=== PATIENT | male | born 1980 | race Caucasian/White ===

== ENCOUNTER 2021-05-30 10:07 | Inpatient (IN) | payer OTHER ==
[2021-05-30] MEDS ORDERED: MENTHOL/PHENOL 1 EACH UD MM PRN (10:58)
[2021-05-30] MEDS ORDERED: METHOCARBAMOL 500 MG TABLET PO PRN (10:58)
[2021-05-30] MEDS ORDERED: ONDANSETRON *ODT* 4 MG TABLET SL PRN (10:58)
[2021-05-30] MEDS ORDERED: BISMUTH SUBSALICYLATE 262 MG/15 ML BTL PO PRN (10:58)
[2021-05-30] MEDS ORDERED: MAG HYDROX/AL HYDROX/SIMETH 30 ML UNIT-DOSE CUP PO PRN (10:58)
[2021-05-30] MEDS ORDERED: MAGNESIUM HYDROX 2400MG/30ML ORAL SUSPENSION 30 ML CUP PO PRN (10:58)
[2021-05-30] MEDS ORDERED: diazePAM 5 MG TABLET PO PRN (10:58)
[2021-05-30] MEDS ORDERED: NICOTINE 10 MG CARTRIDGE (INHALER) IH PRN (10:58)
[2021-05-30] MEDS ORDERED: MAGNESIUM CITRATE 300 ML BOTTLE PO PRN (10:58)
[2021-05-30] MEDS ORDERED: ACETAMINOPHEN 325 MG TABLET (FP) PO PRN ×2 (10:58)
[2021-05-30] MEDS ORDERED: methaDONE HCL 10 MG TABLET (FOR DETOX USE ONLY) PO ONE (10:58)
[2021-05-30] MEDS ORDERED: IBUPROFEN 400 MG TABLET (FP) PO PRN (10:58)
[2021-05-30] MEDS ORDERED: cloNIDine HCL 0.1 MG TABLET PO PRN (10:58)
[2021-05-30 10:59] VITALS: BMI 22.4
[2021-05-30] MEDS ORDERED: INSULIN (NOVOLOG) ASPART 100 UNITS/ML 10ML VIAL SQ SCH (11:47)
[2021-05-30] MEDS ORDERED: INSULIN (NOVOLOG) ASPART 100 UNITS/ML 10ML VIAL SQ ONE ×3 (12:05→23:02)
[2021-05-30] MEDS: PRENATAL VITAMINS W/ FOLIC ACID TABLET (FP) PO SCH (12:35)
[2021-05-30] MEDS: NICOTINE 14 MG/24 HOURS TOPICAL PATCH TD SCH (12:35)
[2021-05-30] MEDS: diazePAM 5 MG TABLET PO SCH ×3 (12:37→22:45)
[2021-05-30] MEDS: hydrOXYzine PAMOATE 25 MG CAPSULE (FP) PO SCH ×3 (13:23→22:45)
[2021-05-30] MEDS ORDERED: PATIENT'S OWN MEDICATION (NON-FORMULARY) (Insulin Lispro [Admelog Solostar] 100 UNIT/ML In SQ SCH (14:00)
[2021-05-30 14:34] LABS: HEMATOCRIT 40.4 % (35.4-49); HEMOGLOBIN 13.7 GM/dL (11.7-16.9); MCHC 33.9 g/dl (32.0-35.9); MEAN CELL VOLUME 82.5 fl (80-96); MEAN PLT VOLUME 8.6 fl (7.5-11.1); PLATELET COUNT 161 10^3/uL (134-434); RDW 15.1 % (11.9-15.9); WHITE BLOOD COUNT 7.1 K/mm3 (4.0-10.0)
[2021-05-30] MEDS ORDERED: INSULIN SLIDING SCALE (NOVOLOG) 1 VIAL SQ SCH (16:30)
[2021-05-30 16:34] LABS: ALBUMIN 3.4 g/dl (3.4-5.0); ALK PHOS 115 U/L (45-117); ANION GAP 9 MMOL/L (8-16); BILIRUBIN,TOTAL 0.3 mg/dL (0.2-1); BLOOD UREA NITROGEN 16.1 mg/dL (7-18); CALCIUM 9.2 mg/dL (8.5-10.1); CHLORIDE 92 mmol/L (98-107); CO2 26 mmol/L (21-32); GLUCOSE,RANDOM 585 mg/dL (74-106); SGOT/AST 29 U/L (15-37); SGPT/ALT 51 U/L (13-61); SODIUM 127 mmol/L (136-145); TOT PROT 7.8 g/dl (6.4-8.2)
[2021-05-30] MEDS ORDERED: INSULIN SLIDING SCALE (NOVOLOG) 1 VIAL SQ ONE ×2 (17:00→23:32)
[2021-05-30] MEDS ORDERED: MELATONIN 5 MG TABLETS PO SCH (22:00)
[2021-05-30] MEDS ORDERED: THIAMINE HCL 100 MG TABLET (FP) PO SCH (22:00)
[2021-05-30] MEDS ORDERED: INSULIN (LEVEMIR) 100 UNITS/ML UNITS SQ SCH (22:00)
[2021-05-30] MEDS: SULFAMETHOXAZOLE/TRIMETHOPRIM 800MG/160MG D.S. TABLET PO SCH (22:45)
[2021-05-31] MEDS: hydrOXYzine PAMOATE 25 MG CAPSULE (FP) PO SCH ×2 (05:50→10:39)
[2021-05-31] MEDS: diazePAM 5 MG TABLET PO SCH ×2 (05:51→10:39)
[2021-05-31] MEDS ORDERED: INSULIN SLIDING SCALE (NOVOLOG) 1 VIAL SQ SCH (07:00)
[2021-05-31] MEDS ORDERED: methaDONE HCL 10 MG TABLET (FOR DETOX USE ONLY) ONE (09:09)
[2021-05-31 09:27] VITALS: BP 103/60; PULSE 86; TEMP 97.5
[2021-05-31] MEDS: NICOTINE 14 MG/24 HOURS TOPICAL PATCH TD SCH (10:37)
[2021-05-31] MEDS: SULFAMETHOXAZOLE/TRIMETHOPRIM 800MG/160MG D.S. TABLET PO SCH (10:37)
[2021-05-31] MEDS: PRENATAL VITAMINS W/ FOLIC ACID TABLET (FP) PO SCH (10:38)
[2021-06-01] MEDS ORDERED: diazePAM 5 MG TABLET PO SCH (06:00)
[2021-06-01] MEDS ORDERED: methaDONE HCL 10 MG TABLET (FOR DETOX USE ONLY) PO ONE (10:00)
[2021-06-02] MEDS ORDERED: diazePAM 5 MG TABLET PO SCH (06:00)
[2021-06-03] MEDS ORDERED: diazePAM 5 MG TABLET PO ONE (06:00)
[2021-06-03] MEDS ORDERED: methaDONE HCL 10 MG TABLET (FOR DETOX USE ONLY) PO ONE (10:00)
== END 2021-05-31 11:21 | disposition left against medical advice (07) | DRG 770 ==
LOC: YASAS 10:07 → Y3N 11:15
PROVIDERS: ADMIT Allergy & Immunology; ATTEND Allergy & Immunology
PROC: HZ2ZZZZ Detoxification Services for Substance Abuse Treatment (ICD-10-PCS; principal; 2021-05-30)
DX: F11.23 Opioid dependence with withdrawal (principal); F10.230 Alcohol dependence with withdrawal, uncomplicated; F14.20 Cocaine dependence, uncomplicated; F17.210 Nicotine dependence, cigarettes, uncomplicated; Z21 Asymptomatic human immunodeficiency virus [HIV] infection status; B18.2 Chronic viral hepatitis C; E11.9 Type 2 diabetes mellitus without complications; Z79.4 Long term (current) use of insulin; R63.4 Abnormal weight loss; Z68.22 Body mass index [BMI] 22.0-22.9, adult; Z91.14 Patient's other noncompliance with medication regimen
CPT/HCPCS: 36415; 80053; 82962; 85027; 86780; C9803; U0003; U0005

== ENCOUNTER 2024-01-21 18:30 | Inpatient (IN) | payer OTHER ==
[2024-01-21 20:25] VITALS: BMI 24.5
[2024-01-21] MEDS ORDERED: guaiFENesin 600 MG TABLET.ER (FP) PO PRN (21:09)
[2024-01-21] MEDS ORDERED: POLYETHYLENE GLYCOL (HEALTHYLAX) 3350 17 GM PACKET PO PRN (21:09)
[2024-01-21] MEDS ORDERED: MAGNESIUM HYDROX 2400MG/30ML ORAL SUSPENSION 30 ML CUP PO PRN (21:09)
[2024-01-21] MEDS ORDERED: BISMUTH SUBSALICYLATE 524 MG/30 ML PO PRN (21:09)
[2024-01-21] MEDS ORDERED: MAG HYDROX/AL HYDROX/SIMETH 30 ML UNIT-DOSE CUP PO PRN (21:09)
[2024-01-21] MEDS ORDERED: NALOXONE (NARCAN) HCL 4 MG/0.1 ML SPRAY NS PRN (21:09)
[2024-01-21] MEDS ORDERED: DICYCLOMINE HCL 10 MG CAPSULE PO PRN (21:09)
[2024-01-21] MEDS ORDERED: NICOTINE POLACRILEX 2 MG GUM BUC PRN (21:09)
[2024-01-21] MEDS ORDERED: hydrOXYzine PAMOATE 25 MG CAPSULE (FP) PO PRN (21:09)
[2024-01-21] MEDS ORDERED: ONDANSETRON *ODT* 4 MG TABLET SL PRN (21:09)
[2024-01-21] MEDS ORDERED: BENZOCAINE/MENTHOL (CHLORASEPTIC ) LOZENGE MM PRN (21:09)
[2024-01-21] MEDS ORDERED: NALOXONE HCL 0.4 MG/ML VIAL IM PRN (21:09)
[2024-01-21] MEDS ORDERED: IBUPROFEN 600 MG TABLET (FP) PO PRN (21:09)
[2024-01-21] MEDS ORDERED: BENZONATATE 200 MG CAPSULE PO PRN (21:09)
[2024-01-21] MEDS ORDERED: IBUPROFEN 400 MG TABLET (FP) PO PRN (21:09)
[2024-01-21] MEDS ORDERED: LOPERAMIDE HCL 2 MG CAPSULE PO PRN (21:09)
[2024-01-21] MEDS ORDERED: ACETAMINOPHEN 325 MG TABLET (FP) PO PRN (21:09)
[2024-01-21] MEDS: THIAMINE 100 MG TABLET PO SCH (22:53)
[2024-01-21] MEDS: MELATONIN 5 MG TABLETS PO SCH (22:54)
[2024-01-21] MEDS: INSULIN ASPART SLIDING SCALE (NOVOLOG) 1 VIAL SQ ONE (23:16)
[2024-01-22] MEDS ORDERED: diazePAM 5 MG TABLET PO PRN (08:41)
[2024-01-22] MEDS ORDERED: methaDONE HCL 40 MG DISPERSABLE TABLET PO SCH (08:45)
[2024-01-22] MEDS ORDERED: methaDONE HCL 10 MG TABLET PO SCH (08:45)
[2024-01-22] MEDS: INSULIN (NOVOLOG) ASPART 100 UNITS/ML 10ML VIAL SQ ONE ×2 (09:51→21:40)
[2024-01-22] MEDS ORDERED: INSULIN ASPART SLIDING SCALE (NOVOLOG) 1 VIAL SQ ONE (09:52)
[2024-01-22] MEDS: NICOTINE 14 MG/24 HOURS TOPICAL PATCH TD SCH (09:53)
[2024-01-22] MEDS: PRENATAL VITAMINS W/ FOLIC ACID TABLET (FP) PO SCH (09:53)
[2024-01-22] MEDS: diazePAM 5 MG TABLET PO SCH (10:31)
[2024-01-22] MEDS: INSULIN (NOVOLOG) ASPART 100 UNITS/ML 10ML VIAL SQ SCH (11:39)
[2024-01-22 11:48] LABS: HEMATOCRIT 41.3 % (35.4-49); HEMOGLOBIN 13.9 GM/dL (11.7-16.9); MCH 28.8 pg (25.7-33.7); MCHC 33.7 g/dl (32.0-35.9); MEAN CELL VOLUME 85.3 fl (80-96); MEAN PLT VOLUME 8.6 fl (7.5-11.1); PLATELET COUNT 122 10^3/uL (134-434); RBC 4.85 M/mm3 (4.00-5.60); RDW 13.6 % (11.9-15.9); WHITE BLOOD COUNT 5.3 K/mm3 (4.0-10.0)
[2024-01-22 11:55] LABS: CHLORIDE 97 mmol/L (98-107); POTASSIUM 5.7 mmol/L (3.5-5.1); SODIUM 131 mmol/L (136-145)
[2024-01-22] MEDS: BICTEGRAV/EMTRICIT/TENOFOV (BIKTARVY) 50-200-25 MG TABLET PO SCH (12:00)
[2024-01-22 12:27] LABS: ALBUMIN 3.3 g/dl (3.4-5.0); ANION GAP 8 mmol/L (4-13); BLOOD UREA NITROGEN 22.4 mg/dL (7-18); CO2 26 mmol/L (21-32)
[2024-01-22 12:28] LABS: CREATININE 1.1 mg/dL (0.55-1.3)
[2024-01-22 12:29] LABS: CALCIUM 9.4 mg/dL (8.5-10.1)
[2024-01-22 12:30] LABS: BILIRUBIN,TOTAL 0.3 mg/dL (0.2-1); SGPT/ALT 15 U/L (13-61); TOT PROT 7.7 g/dl (6.4-8.2)
[2024-01-22 12:32] LABS: ALK PHOS 74 U/L (45-117)
[2024-01-22 12:34] LABS: SGOT/AST 10 U/L (15-37)
[2024-01-22 12:41] LABS: GLUCOSE,RANDOM 578 mg/dL (74-106)
[2024-01-22] MEDS ORDERED: PATIENT'S OWN MEDICATION (NON-FORMULARY) (Insulin Lispro [Admelog Solostar] 100 UNIT/ML In SQ SCH (14:00)
[2024-01-22 19:41] LABS: HIV INTERPRETATION PRESUMPTIVE POSITIVE (NEGATIVE)
[2024-01-22] MEDS: INSULIN (LEVEMIR) 100 UNITS/ML UNITS SQ SCH (21:41)
[2024-01-23] MEDS ORDERED: INSULIN ASPART SLIDING SCALE (NOVOLOG) 1 VIAL SQ ONE ×2 (07:12→10:48)
[2024-01-23] MEDS: METHOCARBAMOL 500 MG TABLET PO PRN (10:29)
[2024-01-23] MEDS: INSULIN (NOVOLOG) ASPART 100 UNITS/ML 10ML VIAL SQ ONE (17:13)
[2024-01-23] MEDS: INSULIN (LEVEMIR) 100 UNITS/ML UNITS SQ SCH (21:53)
[2024-01-24] MEDS: diazePAM 5 MG TABLET PO SCH (06:07)
[2024-01-24] MEDS ORDERED: INSULIN ASPART SLIDING SCALE (NOVOLOG) 1 VIAL SQ ONE (07:09)
[2024-01-24] MEDS: INSULIN (NOVOLOG) ASPART 100 UNITS/ML 10ML VIAL SQ SCH (08:02)
[2024-01-24] MEDS: CEPHALEXIN MONOHYDRATE 500 MG CAPSULE (UD) PO SCH (10:29)
[2024-01-24 12:56] VITALS: BP 108/72; PULSE 95; RESP 16; TEMP 97.3
[2024-01-25] MEDS ORDERED: diazePAM 5 MG TABLET PO SCH (06:00)
[2024-01-26] MEDS ORDERED: diazePAM 5 MG TABLET PO ONE (06:00)
== END 2024-01-24 13:03 | disposition home or self-care (01) | DRG 773 ==
LOC: YASAS 18:30 → Y3N 22:19
PROVIDERS: ADMIT Allergy & Immunology; ATTEND Surgery
PROC: HZ2ZZZZ Detoxification Services for Substance Abuse Treatment (ICD-10-PCS; principal; 2024-01-21)
DX: F10.230 Alcohol dependence with withdrawal, uncomplicated (principal); F11.20 Opioid dependence, uncomplicated; F17.210 Nicotine dependence, cigarettes, uncomplicated; F31.9 Bipolar disorder, unspecified; F41.9 Anxiety disorder, unspecified; Z21 Asymptomatic human immunodeficiency virus [HIV] infection status; E11.9 Type 2 diabetes mellitus without complications; Z79.4 Long term (current) use of insulin; Z56.0 Unemployment, unspecified
CPT/HCPCS: 36415; 80053; 80305; 80307; 82962; 85027; 86359; 86360; 86780; 87389; 87522; 93005; 93010